=== PATIENT | female | born 1960 | race Caucasian/White ===

== ENCOUNTER 2024-06-03 15:42 | Outpatient (CLI) | payer MEDICARE, MEDICAID, SELFPAY ==
--- NOTE | 2024-06-03 10:15 | DI.RAD_ITS ---
Exam(s) XR KNEE RT 2V AP,LAT EXAM: XR KNEE RT 2V AP,LAT CLINICAL HISTORY: knee pain. TECHNIQUE: 2D digital imaging was performed. COMPARISON: CR ORTHO KNEE OPAL 4+VIEWS from 01/23/2019 FINDINGS: Two views. No evidence of fracture. There is a prominent joint effusion noted. There is opyw-is-[id number] narrowing of the medial compartment and marginal osteophytes off both sides of the medial femoral condyle. Lateral compartment exhibits normal height. Mild degenerative changes in the patellofemoral compartm ent. Bone density normal. No osseous lesions. IMPRESSION: Ctvx-[id number] narrowing of the medial compartment. DATA REPOSITORY: RADIATION DOSE DELIVERED:
--- NOTE | 2024-06-03 10:25 | DI.RAD_ITS ---
Exam(s) XR STANDING ALIGNMENT EXAM: XR STANDING ALIGNMENT CLINICAL HISTORY: knee pain. TECHNIQUE: 2D digital imaging was performed. COMPARISON: CR ORTHO KNEE OPAL 4+VIEWS from 01/23/2019 FINDINGS: 3 views There is [id number]-[id number] narrowing of the medial compartment of the right knee again noted with preserva tion of height of the lateral compartment. In the opposite-left knee there is advanced narrowing of the lateral compartment which has progressed from 2019 and associated with mild valgus deformity of the left knee. The medial compartment of the left knee continues to exhibit normal height. Hips appear unremarkable. Ankles unremarkable. No osseous lesions. IMPRESSION: Regression of degenerative changes in both knees as described above when compared to 2019. DATA REPOSITORY: RADIATION DOSE DELIVERED:
== END 2024-06-03 15:43 | disposition home or self-care (01) ==
LOC: DIORS 15:43
PROVIDERS: Visit Provider Physician Assistant
DX: M17.12 Unilateral primary osteoarthritis, left knee; M17.11 Unilateral primary osteoarthritis, right knee
CPT/HCPCS: 99203; 73560; 77073

== ENCOUNTER 2024-07-23 07:35 | Day surgery (SDC) | payer MEDICARE, MEDICAID, SELFPAY ==
[2024-07-23] VITALS (18 sets, daily range): BP systolic 75–145; BP diastolic 33–96; PULSE 62–157; RESP 9–21; TEMP 35.9–36.7; O2SAT 92–97; BMI 35.5
--- NOTE | 2024-07-23 07:18 | PDOC.DSDIS_ITS ---
Date of service: 07/23/24 Discharge Plan Disposition Patient Disposition: Home Condition: Good Discharge Details Reason For Visit: Right knee DJD Attending Provider: John Paul Lovett Primary Care Provider: Unknown,Unknown Home Meds and New Rx's Prescriptions: New celecoxib [Celebrex] 200 mg capsule 200 mg PO BID PRNQty: 60 0RF Rx Instructions: Take one tablet twice daily for pain and inflammation aspirin 81 mg tablet,delayed release (DR/EC) 81 mg PO BID 30 Days Qty: 60 0RF acetaminophen 500 mg tablet 1,000 mg PO Q8H PRN Qty: 90 0RF Rx Instructions: Take two tablets up to every 8 hours as needed for pain pantoprazole 40 mg tablet,delayed release (DR/EC) 40 mg PO DAILY Qty: 14 0RF dexamethasone 4 mg tablet 4 mg PO DAILY Qty: 2 0RF Rx Instructions: Take one tablet once daily for two days docusate sodium [Colace] 100 mg capsule 100 mg PO BID Qty: 30 0RF gabapentin 300 mg capsule 300 mg PO QHS Qty: 14 0RF Rx Instructions: Take one tablet at bedtime oxycodone 5 mg tablet 5 mg PO Q4H PRNQty: 18 0RF Rx Instructions: Take one tablet up to every 4 hours as needed for severe postoperative pain Continued atorvastatin 20 mg tablet 20 mg PO DAILY aripiprazole 10 mg tablet 10 mg PO DAILY bupropion HCl 300 mg tablet extended release 24 hr 300 mg PO QAM citalopram 40 mg tablet 40 mg PO DAILY trazodone 100 mg tablet 100 mg PO QHS PRN lamotrigine 100 mg tablet 100 mg PO BID clonazepam 1 mg tablet 1 mg PO BID Held adalimumab 40 mg/0.4 mL pen injector kit See Rx Instructions subcut .COMPLEX Hold Instructions: Resume on 08/13/24. Rx Instructions: inject one - 40 mg/0.4 mL pen every 2 weeks subcut Discharge Instructions Additional Instructions: Total Knee Discharge Instructions Activity: The most important activity is to walk and to work on gentle motion (both flexion and extension). You should try to take short walks a few times a day. It is important that when resting you work on keeping the knee straight. Avoid putting a pillow behind the knee as this will encourage flexion. Work on range of motion exercises as provided by Physical Therapy. - Start outpatient physical therapy within 2 weeks. - You should wear the STEPHANIE hose on both legs for 2 weeks. You may remove these at night. You may also use any compression sock in place of the STEPHANIE hose. - Utilize [employer] to review exercises, see videos on exercises and obtain basic information pertaining to your surgery and your recovery. Dressing: Remove the Jacky wrap by 2 days after your surgery and put on the STEPHANIE stocking given to you from the hospital. Keep the surgical dressing (underneath the JACKY wrap) in place for at least one week. After the first week it may be removed and replaced with light gauze and tape or nothing. The wound and dressing may get wet after 3 days but avoid soaking the dressing or otherwise it will need to be changed. Many people prefer covering the dressing with cling wrap (saran wrap) to minimize it from getting soaked. If it gets wet, just pat dry. If it starts to peel off then it will need to be changed. Medications: - You should take Tylenol and anti-inflammatory Celebrex as your primary pain control medications. If the Celebrex is too expensive or not covered, please call the office for another alternative (Advil/Ibuprofen or Naproxen/Aleve) - You have been prescribed a stronger pain medication Oxycodone for breakthrough pain, take as needed as prescribed. - You have also been prescribed a stomach acid reduction agent Pantoprozole to help reduce stomach acid and reflux. - You have been prescribed Gabapentin to take at night for restlessness and nerve pain. - You will be taking Aspirin 81mg twice a day for DVT prevention unless instructed otherwise. - You have also been prescribed Decadron to take to control post-operative nausea and pain. You will start this tomorrow. - If you have constipation you should take Colace (which has been prescribed) or Miralax (which is available [id number]). It takes most people 3-4 days to have a bowel movement. Follow-up: 2 weeks If you have any acute concerns or questions, please do not hesitate to contact the office at [phone]. You may contact Dr. Lovett with any questions after hours through the hospital at [phone] or on his cell phone at [phone]. Referrals: John Paul Lovett MD [ [facility] STAFF PHYSICIAN] - Equipment/Supplies: Walker Activity:: Elevate Remove Dressings/Wound Care:: Do Not Remove Shower/Bathe:: Cover Diet:: As Tolerated Discharge Orders Discharge Orders: Discharge Order (Routine); Ordered 07/23/24 Ordered By: Brissa Aguilar
[2024-07-23] MEDS: Acetaminophen 500 MG TAB 1000 MG PO (07:58)
[2024-07-23] MEDS: Gabapentin 300 MG CAP PO (07:58)
[2024-07-23] MEDS: Celecoxib 200 MG CAP 400 MG PO (07:58)
[2024-07-23] MEDS: Normal Saline 500 ML 30 ML IV (08:10)
--- NOTE | 2024-07-23 08:12 | ANES.PREOP_ITS ---
General Info Date of Service Date Performed: 07/23/24 Height: 5 ft Weight: 82.6 kg Body Mass Index (BMI): 35.5 Surgical Procedure: Operation Date: 07/23/24 09:25 Proposed Procedure Side Surgeon p Knee Total Arthroplasty w/OrthAlign Right John Paul Lovett MD Meds Allergies and Home Medications Allergies Allergy/AdvReac Type Severity Reaction Status Date / Time Penicillins Allergy Mild rash Verified 07/23/24 07:44 tree pollen Allergy Unknown Unknown Uncoded 07/23/24 07:44 Home Medication ?Medication ?Instructions ?Recorded adalimumab 40 mg/0.4 mL See Rx Instructions subcut .COMPLEX 04/23/24 subcutaneous pen kit aripiprazole 10 mg tablet 10 mg PO DAILY 04/23/24 atorvastatin 20 mg tablet 20 mg PO DAILY 04/23/24 bupropion HCl 300 mg 24 hr tablet, 300 mg PO QAM 04/23/24 extended release citalopram 40 mg tablet 40 mg PO DAILY 04/23/24 trazodone 100 mg tablet 100 mg PO QHS PRN 04/23/24 clonazepam 1 mg tablet 1 mg PO BID 06/03/24 lamotrigine 100 mg tablet 100 mg PO BID 06/03/24 acetaminophen 500 mg tablet 1,000 mg (2 x 500 mg) PO Q8H PRN 07/23/24 pain #90 tabs aspirin 81 mg tablet,delayed 81 mg PO BID 30 days #60 tabs 07/23/24 release celecoxib 200 mg capsule (Celebrex) 200 mg PO BID PRN #60 caps 07/23/24 dexamethasone 4 mg tablet 4 mg PO DAILY #2 tabs 07/23/24 docusate sodium 100 mg capsule 100 mg PO BID #30 caps 07/23/24 (Colace) gabapentin 300 mg capsule 300 mg PO QHS #14 caps 07/23/24 oxycodone 5 mg tablet 5 mg PO Q4H PRN #18 tabs 07/23/24 pantoprazole 40 mg tablet,delayed 40 mg PO DAILY #14 tabs 07/23/24 release Current Visit Medications: Current Medications Generic Name Dose Route Start Last Admin Trade Name Freq PRN Reason Stop Dose Admin Acetaminophen 1,000 mg 07/23/24 06:00 07/23/24 07:58 Acetaminophen 500 Mg Tab PO 07/23/24 23:59 1,000 mg PREOP CARTER Administration Celecoxib 400 mg 07/23/24 06:00 07/23/24 07:58 Celecoxib 200 Mg Cap PO 07/23/24 23:59 400 mg PREOP CARTER Administration Gabapentin 300 mg 07/23/24 06:00 07/23/24 07:58 Gabapentin 300 Mg Cap PO 07/23/24 23:59 300 mg PREOP CARTER Administration Hydromorphone HCl 0.5 mg 07/23/24 07:17 Hydromorphone 1 Mg/Ml Syr IVP 08/22/24 07:16 Q2H PRN PRN Cefazolin Sodium/Dextrose 2 gm in 50 mls @ 100 mls/hr 07/23/24 06:00 Ancef Duplex IVPB 07/23/24 23:59 PREOP CARTER Tranexamic Acid 1,000 mg/ 110 mls @ 660 mls/hr 07/23/24 06:00 Sodium Chloride IVPB 07/23/24 23:59 PREOP CARTER Sodium Chloride 500 mls @ 30 mls/hr 07/23/24 07:00 07/23/24 08:10 Saline 500ml Bag IV 08/22/24 06:59 30 mls/hr INFUSION CARTER Administration Cefazolin Sodium/Dextrose 1 gm in 50 mls @ 100 mls/hr 07/23/24 08:00 Ancef Duplex IVPB 07/24/24 00:29 Q8H CARTER IV Miscellaneous Supplies 1 each 07/23/24 06:00 Iv Access IV 07/23/24 23:59 DIRECTED CARTER Oxycodone HCl 0 mg 07/23/24 07:17 Oxycodone 5 Mg Tab PO 08/22/24 07:16 Q3H PRN PRN Pain Sodium Chloride 0 ml 07/23/24 06:00 Normal Saline Flush 10 Ml Syr IV 07/23/24 23:59 PRN PRN Sodium Chloride 0 ml 07/23/24 06:00 Normal Saline 10 Ml Vial IJ 07/23/24 23:59 DIRECTED PRN Sterile Water 0 ml 07/23/24 06:00 Water,Injection,Sterile 10 Ml Vial IJ 07/23/24 23:59 DIRECTED PRN PFSH Active Problems Active Problems: Problem Status Onset Code Ovarian cyst Acute N83.209 Osteoarthritis of left knee Acute M17.12 Osteoarthritis of right knee Chronic M17.11 Morbid obesity Acute E66.01 Midline cystocele Acute N81.11 Incomplete uterovaginal prolapse Acute N81.2 Hyperlipidemia Acute E78.5 Crohn's disease of large intestine Acute K50.10 Chronic colitis Acute K52.9 Medical History Medical History Depressive disorder Surgical History Surgical History History of colonoscopy History of esophagogastroduodenoscopy (EGD) History of tubal ligation History of cholecystectomy Tobacco Smoking/Tobacco Use Status: Former Tobacco Use Alcohol Alcohol Intake: never Substance Use Substance use: Daily Substance use type: marijuana Vital Signs and Lab Results Vital Signs Most Recent Vital Signs in EMR: Most Recent Vital Signs Temp Pulse Resp BP Pulse Ox 36.2 C L 64 16 145/96 H 96 07/23/24 07:40 07/23/24 07:40 07/23/24 07:40 07/23/24 07:40 07/23/24 07:40 Lab Results Blood Type / Crossmatch: 2 No Data to Display Complete Blood Count: 2 No Data to Display Complete Metabolic Panel: 2 No Data to Display Liver Function Panel: 2 No Data to Display Coagulation Panel: 2 No Data to Display Cardiac Panel: 2 No Data to Display Arterial Blood Gas: 2 No Data to Display Venous Blood Gas: 2 No Data to Display Pancreas Panel: 2 No Data to Display Thyroid Panel: 2 No Data to Display Infectious Disease: 2 No Data to Display Blood Cultures: 2 No Data to Display Toxicology Panel: 2 No Data to Display Anesthesia Assessment and Plan Anesthesia History Personal History: No History of Anesthesia Complications Family History: No Family History of Anesthesia Complications Exercise Tolerance Exercise Tolerance: Metabolic Equivalents<4 Pertinent Negatives Pertinent Negatives: No Symptoms of GERD, No Major Cardiovascular Symptoms or Complaints, No Major Pulmonary Symptoms or Complaints and No History of CVA/TIA Cardiac & Pulmonary Exam Cardiac Exam: Normal S1/S2 Heart Sounds Pulmonary Exam: Clear Bilateral Breath Sounds Implantable Cardiac Device Does patient have a Pacemaker or an ICD?: No Airway Exam Known Difficult Airway: No Mallampati Class: 2 Mouth Opening: Normal (> 3cm) Thyromental Distance: Greater than 3 cm Neck Range of Motion: Full ROM Neck Circumference: Normal Teeth Condition: Loose or Chipped and Removable Dentures/Plates Upper Tooth Numberin 1. Loose ASA Classification ASA Score: ASA 2 Emergency Case?: No NPO Status NPO Status: NPO Clears >2 hours, Solids >8 hours Anesthesia Plan Resuscitation Status: Full Code Anesthesia Technique: Spinal Anesthesia Airway Planned: Natural Airway Pain Management: Surgeon and patient request nerve block Monitors Used: Standard Monitors
[2024-07-23] MEDS: ceFAZolin 2 GM/50 ML BAG IVPB (08:42)
--- NOTE | 2024-07-23 08:50 | ROE_ITS ---
Operative Note Operative Note PRE-OP DIAGNOSIS: Right Knee Osteoarthritis POST-OP DIAGNOSIS: same PROCEDURE: Right Total Knee Replacement with Intraoperative Navigation SURGEON: John Paul Lovett GAS ENGINEER: Brissa Aguilar ANESTHESIA TYPE: Spinal Refer to Anesthesia Record ESTIMATED BLOOD LOSS: 50 PATHOLOGY: none sent TOURNIQUET TIME: 0 COMPLICATIONS: None Patient was transported to: PACU Patient's condition: stable Implants: 1. Depuy Attune Cementless Cruciate Retaining Femoral Component, Size 5 Narrow 2. Depuy Attune Cementless Fixed Bearing Tibial Component, Size 3 3. Depuy Attune 5x6mm CR/FB Poly 4. Depuy Attune Patellar Component, Size 32 Indications: I have seen Stephenie in clinic for symptoms of RIGHT knee arthritis, confirmed with radiographic findings. Stephenie has exhausted nonoperative methods and was having significant limitations in daily function and desired better function and less pain. I discussed the technical details of a knee replacement. I explained the risks of the procedure to include, but not limited to, bleeding, infection, pain, stiffness, fracture, damage to nerves and vessels, damage to muscles and tendons, loosening, need for repeat procedure, blood clot and cardiopulmonary demise. Despite these risks, she elected to proceed. Findings: There was significant signs of arthritis throughout the knee. Procedure Description: Stephenie was greeted in the preoperative holding area where the correct side was identified and marked. The consent was reviewed with the patient and signed. The history and physical was updated. All questions were answered. Preoperative mediacations were administered: Acetaminophen 1000mg, Celebrex 400mg, and Gabapentin 300mg. An adductor canal block was then administered by the anesthesia team in the DSU. She was taken back to the operating room. A spinal anesthestic was then administered. The patient was placed into the supine position on the operating room table. Posts were placed for positioning during the procedure. All bony prominences were well padded. Prophylactic antibiotics in the form of Cefazolin were administered. 1g of Tranxemic Acid was given intravenously within 30 minutes of incision. The right leg was then prepped with Chloraprep and draped in a standard fashion with impervious stockinette. A second prep with Chloraprep was performed prior to application of Iodine impregnated skin protection. A timeout to confirm correct identity, side and site, procedure, allergies, anesthesia, and medical concerns was performed. With the knee in some flexion, a midline incision was made overlying the knee. Full thickness skin flaps were raised once the extensor mechanism was encountered. These were raised medially and laterally. Any bleeding was controlled with electrocautery. Once the extensor mechanism was fully exposed, a medial parapatellar arthrotomy was performed in a flexed position. All bleeding from the arthrotomy and the geniculate arteries was coagulated. A medial subperiosteal peel was performed with electrocautery to the midcoronal plane. The fat pad was removed while keeping the patellar tendon protected. The anterior distal femur synovium was removed for later visualization. The ACL and PCL were resected and the anterior horn of the lateral meniscus was transected. The knee was then flexed with the patella everted. A single starting pin was then placed 1cm anterior to the PCL insertion and the notch in the direction of the femoral head. The OrthoAlign device was applied over the pin. It was oriented to be in line with the epicondylar axis and the trochlear groove. It was then pinned into place. The navigation computer was then turned on and calibrated. The distal femur cut was set at 0 degrees varus and 3.5 degrees flexion. The distal femur cutting guide then was positioned for a 9mm cut. The distal femur was cut with an oscillating saw while protecting the soft tissues. The tibia was then addressed. The OrthoAlign device was placed over the tibial tubercle and medial tibia and secured into position. Once again, OrthoAlign was calibrated and then set for a 1.5 degree varus cut and 5.5 degrees of posterior slope. With this locked into position, the cut thickness stylus was used to assess cut thickness. The medial side, most involved side, was set for a 6mm cut. This was then held in position and pinned into place with 2 additional pins and a cross pin for stability. The medial and lateral collateral ligaments were protected and the cut was performed. With this completed, it was assessed and noted to be of appropriate dimensions. The guide and OrthoAlign was removed. A spacer block was inserted and the knee was brought into extension to ensure enough space was present. . The Orthoalign gap balancing device was then placed in extension. This was used to ensure that the ligaments were properly balanced with up to 2 to 3 mm laxity laterally compared medially. The extension gap was measured as 20mm. The knee was then brought into 90 degrees of flexion and the ligament forensic document examiner was once again placed. Under the same amount of force the flexion gap was measured. The Attune specific jig was placed and the flexion gap was made to match the extension gap. The femur was then sized as a size 5 narrow. The 4-in-1 cutting guide was the placed. An arsenio wing was used to confirm appropriate position of the anterior cut to avoid notching. This cutting guide was ensured to be flush on the cut surface and then pinned into place with headed pins. While protecting the soft tissues, quad tendon, and collateral ligaments, the anterior and posterior cuts were performed with a saw. The central two pins were removed and the posterior and anterior chamfers were cut next. The notch-cutting guide was placed. This was pinned to lateralize the femoral component as much as possible while keeping it flush on the cut surface. This was then pinned into position. A saw was used to make the notch cut. A rasp smoothed the cut surfaces. The medial and lateral menisci were removed. A trial femoral component was then inserted, impacted down to the cut surfaces, and the lug holes were drilled. A provisional trial tibial component was placed and the knee was brought through range of motion. There was noted to be excellent extension and flexion. There was no significant instability. The patella was tracking without thumbs. A size 6mm polyethylene component provided the best range of motion and stability with less than 2mm gapping with medial and lateral stress and full extension without significant hyperextension. The tibial cut surface was fully exposed. The tibia was then sized as a 3. The tibia had been previously marked during trialing to correspond to the center of the tibial component to help with rotation. The trial was aligned to this santos, approximately rotated to the medial 1/3rd of the tibial tubercle. The trial was pinned into place. The tibia was prepared with a reamer and a keel punch and lug holes. The knee was then brought into extension and the patella was measured as 21mm. Using the patellar clamp and cut guide, this was resected to a flat surface with at least 13mm of thickness remaining. The size 32 patella fit the best. This was oriented and then clamped into position. The lugs were drilled. The trial components were removed. The final components were opened on the back table. The periosteal and capsular tissues, especially posteriorly, around the knee were then systematically injected with a periarticular cocktail consisting of 246mg of Ropivacaine, 0.5mg of Epinephrine, 0.08mg of Clonidine, and 30mg of Ketorolac, diluted to 100cc. On the back table, with the implants opened, the cement was mixed. One batch of high viscosity cement was prepared with vacuum assistance. After the cement was ready a small amount was placed on the cut surface of the patella and the patellar button was clamped into position and held. While the cement was harde leona, the cementless knee components were placed. Starting with the tibial component, the tibia was subluxed anteriorly and the lug holes of the component were lined up. The tibia was then impacted with an impactor and mallet until the tibial component was in contact with the tibia. Then, the femoral component was inserted. The lug holes were aligned and the component was impacted into position. The final polyethylene component was inserted. The knee was irrigated with Surgiphor Betadine solution. This was allowed to sit in the knee for 3 minutes and then it was thoroughly irrigated out with saline. After the cement had finally cured, approximately 15min, the clamp was removed from the patella and the knee was taken through range of motion. The patella was tracking with a no-thumbs technique. The capsule was then reapproximated with a No. 1 Vicryl at multiple locations. The capsule was finally closed with a No. 2 Stratafix, barbed suture. Deep tissues were then reapproximated with 0 Vicryl and 2-0 Vicryl. The skin was closed with a running 3-0 Monocryl in a subcuticular fashion. This was reinforced with skin glue. A Mepilex silver dressing was applied along with a [id number] IGOR wrap. A CryoCuff was applied. Stephenie was transferred to the hospital bed without difficulty an suffering no apparent complication. Stephenie has a good prognosis. Physical therapy will start today and without restrictions, weight-bearing as tolerated. Aspirin 81mg BID will be used for DVT prophylaxis. Date of Procedure: 07/23/24
--- NOTE | 2024-07-23 09:09 | W.ANESNERVE ---
Nerve Block Single Injection Procedure Date and Time Date Performed: 07/23/24 Procedure Start: 08:34 Location Where Procedure Performed Procedure Location: Day Surgery Unit Reason Performed: Postoperative Analgesia Requesting Provider: John Paul Lovett Timeout Performed Timeout Performed: Yes Monitoring Used ECG, Blood Pressure, SpO2 and See EMR for corresponding vital signs Sterility Sterility: Hand Hygiene, Surgical Cap, Surgical Mask, Sterile Gloves, Sterile Drape/Sheet and Chlorhexidine Sedation Given During Procedure Sedation Given (Indicate Dose Given): No Sedation given Patient Mental Status Patient Mental Status: Awake Nerve Block 1st Nerve Block: Laterality: Right Block Type: Adductor Canal Ultrasound Image Saved?: Yes Needle / Catheter Used: 120mm SonoPlex II Local Anesthetic Bolus (Indicate Dose Given): Lidocaine used for local infiltration of skin, Injected in 3-5ml increments after negative blood aspiration and Bupivacaine 0.25% Dose:: 15 ml Additives (Indicate Dose Given): None Ultrasound: Sterile probe cover and gel used Nerve Stimulator: Not Used Paresthesia: None Procedure Tolerated: No Complications and Patient tolerated well Procedure Outcome: Successful Performed By: Dimple Aponte
--- NOTE | 2024-07-23 11:24 | W.ANESPOSTOP ---
Postoperative Evaluation Date, Time and Location Date Performed: 07/23/24 Time Performed: 11:19 Patient Location: Day Surgery Unit Vital Signs Most Recent Imported Vital Signs: Most Recent Vital Signs Temp Pulse Resp BP Pulse Ox 35.9 C L 62 18 114/67 95 07/23/24 11:02 07/23/24 11:02 07/23/24 11:02 07/23/24 11:02 07/23/24 11:02 Pain Score Most Recent Pain Score: Most Recent Pain Score Pain Level 0 07/23/24 11:02 Assessment Mental Status: Awake (Alert & Oriented to Patient Baseline) Airway and Respiratory Function: Patent airway with normal (patient baseline) respiratory exam Cardiovascular Function: Hemodynamically Stable Hydration Status: Adequately Hydrated Nausea & Vomiting: No Nausea or Vomiting Pain: Pain is tolerable per patient Peripheral Nerve Block: Regional nerve block not resolved at time of post operative discharge Postoperative Comments:: Spinal wearing off appropriately. Patient with tentative postop so long as voids and no major status changes can go home.
[2024-07-23] MEDS: oxyCODONE 5 MG TAB PO (11:48)
--- NOTE | 2024-07-23 12:05 | IN_ITS ---
PT Notes Visit Reasons: Right knee DJD Physical Therapy Day Surgery Initial Evaluation Date: 07/23/2024 Referring Doctor: ANA MARIA Talamantes PT Orders: PT CONSULT: S/p Ortho surgery Precautions: WBAT on the right LE with AD. Patient Profile/Admitting Diagnosis: Stephenie is a 64-year-old female with degenerative joint disease of the right knee and is status post right total knee arthroplasty on postoperative day 0. PMHX: Medical History (Updated 07/08/24 @ 13:47 by Brissa Aguilar) Depressive disorder Surgical History (Updated 04/23/24 @ 10:37 by Frieda Benites RN) History of colonoscopy History of esophagogastroduodenoscopy (EGD) History of tubal ligation History of cholecystectomy Social History/Home Situation: Independent with all aspects of ADLs prior to surgery although was having increased difficulty with mobility ADL performance due to arthritis. 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 Equipment Owned/DME: None Subjective: Complained of pain at 7?8/10 in the front of her right knee at rest and with movement. Denied headache, chest pain, and lightheadedness throughout session. Objective: General Observation: Patient resting in bed. IGOR wraps to right LE. Cryo/Cuff to right knee. Mental Status: ANO x 4 Pain: 7-8/10 at rest and with movement ROM: Right Lower Extremity: Hip flexion WFL. Hip abduction WFL. Knee flexion 10 degrees to 100 degrees. Knee extension -10 degrees ankle dorsiflexion WFL. Ankle plantarflexion WFL. Left Lower Extremity: Hip flexion WFL. Hip abduction WFL. Knee flexion WFL. Ankle dorsiflexion WFL. Ankle plantarflexion WFL. Strength: Right Lower Extremity: Hip flexors 5/5. Hip abductors 5/5. Knee flexors 3-/5. Knee extensors 3-/5. Ankle dorsiflexors 5/5. Ankle plantarflexors 5/5. Left Lower Extremity:Hip flexors 5/5. Hip abductors 5/5. Knee flexors 5/5. Knee extensors 5/5. Ankle dorsiflexors 5/5. Ankle plantarflexors 5/5. Sensation: Intact tested pain and light pressure in bilateral lower extremities Bed Mobility/Transfers: Minimal cueing provided for use of B hands as needed for support, movement sequence, AD management, and posture to reduce fall risk and minimize pain report Supine to sit stand by assist Sit to stand contact-guard assist with FWW Stand to sit stand by assist Bed to chair stand by assist Gait: Facilitated safe and correct performance of level surface ambulation covering a distance of 150 feet using front wheeled walker with reciprocal swing through heel-toe gait pattern requiring only contact-guard assist and minimal verbal cueing for safe gait pattern, AD management, proper weight distribution, and posture to minimize pain report and reduce fall risk. Balance: Static Sitting: Normal Dynamic Sitting: Normal Static Standing: Fair Dynamic Standing: Fair Special Tests: Mobility Limitations Standardized Measure [facility] AM-PAC 6 clicks Basic Mobility Inpatient Short Form: Raw Score: 21 CMS Score: 29% deficit Informed Consent/Education: Patient instructed in purpose of PT consult. Packet containing TKA exercise protocol has been given to patient. Education and training on initial set of exercises that can be done at home have been completed with patient. Trained patient with correct performance of exercises below to maximize motor control, joint flexibility, soft tissue extensibility of the R knee musculature: Access Code: [email or web address] URL: [email or web address] Date: 07/23/2023 Prepared by: Letty Hoover Exercises - Supine Quad Set - 1 x daily - 7 x weekly - 1 sets - 10 reps - 5 hold - Supine Heel Slide - 1 x daily - 7 x weekly - 1 sets - 10 reps - 5 hold - Supine Ankle Pumps - 1 x daily - 7 x weekly - 1 sets - 10 reps - 5 hold - Small Range Straight Leg Raise - 1 x daily - 7 x weekly - 1 sets - 10 reps - 5 hold - Seated March - 1 x daily - 7 x weekly - 1 sets - 10 reps - 5 hold Assessment: Patient requires the use of a front wheeled walker for mobility ADL performance to maximize independence and reduce fall risk. Patient presents with clinical signs and symptoms consistent with current/admitting diagnoses that have resulted to mobility limitations, gait instability, generalized weakness, and impairment of motor control as demonstrated by the following impairment level findings: 1. Decreased strength to R knee major muscle groups 2. Impaired standing balance 3. Limitation of joint range of motion in R knee Impairments are contributing to the following functional limitations: 1. Inability to safely ambulate without assistive device 2. Increase completion time for mobility ADL performance 3. Increased fall risk Patient is assessed as a 51435 moderate complexity based on the following: History: 64-year-old female with impairment level findings, functional limitations, and past medical history as indicated above Examination: Demonstrable impairment in strength, balance, and mobility level with underlying impairments and functional limitations as documented above Presentation: Evolving Decision Makin moderate complexity Goals: N/A. PT evaluation and 1-2 treatment sessions only for functional mobility training using recommended AD and for HEP instruction. Plan of Care/Treatment Plan: N/A. PT evaluation and 1-2 treatment session only for functional mobility training using recommended AD and for HEP instruction. DISCHARGE RECOMMENDATIONS: Home when medically cleared by orthopedic surgeon. Recommend outpatient PT services in order to optimize functional mobility outcomes and facilitate return to independent community ambulation without an assistive device. TREATMENT CODE/TIME: 42003 x 20 minutes for 1 unit, 90650 x 15 minutes for 1 unit (12:05?12:40). Thank you for the opportunity to participate in the care of this patient. Please sign an return this page within 30 days if you agree with the above POC. Thank you! Physician Signature Date [facility] Thank you for the opportunity to participate in the care of this patient. Letty Hoover PT, DPT, CLT [facility] [place], [place]
== END 2024-07-23 13:04 | disposition home or self-care (01) ==
LOC: SUR 07:36
PROVIDERS: Visit Provider Student in an Organized Health Care Education/Training Program
PROC: (CPT 27447; principal; 2024-07-23 09:15)
DX: M17.11 Unilateral primary osteoarthritis, right knee (principal); G89.29 Other chronic pain; M25.561 Pain in right knee; E66.01 Morbid (severe) obesity due to excess calories; E78.5 Hyperlipidemia, unspecified; K50.10 Crohn's disease of large intestine without complications
CPT/HCPCS: 20985; 27447; 64447; 97110; 97162; C1776; J0665; J0690; J1100; J2003; J2250; J2401; J2405; J2704

== ENCOUNTER 2024-09-19 15:25 | Outpatient (CLI) | payer MEDICARE, MEDICAID, SELFPAY ==
--- NOTE | 2024-09-19 10:00 | DI.RAD_ITS ---
Exam(s) XR KNEE RT 2V AP,LAT XR STANDING ALIGNMENT EXAM: XR STANDING ALIGNMENT and XR knee RT 2 V CLINICAL HISTORY: F/U RIGHT TKR. TECHNIQUE: 2D digital imaging was performed. Six images were obtained. COMPARISON: CR XR STANDING ALIGNMENT from 06/03/2024 CR XR KNEE RT 2V AP,LAT from 06/03/2024 FINDINGS: BONES: The hips are well maintained. Since the prior examination the patient has undergone a right t otal knee arthroplasty. The orthopedic hardware is in good position. Old well corticated osseous de nsities are seen in the soft tissues anterior to the patella. In the left knee, there are marked deg enerative changes seen in the lateral femoral tibial joint characterized by joint space narrowing and osteophytes.. The ankles are well maintained.There is no significant leg length discrepancy. SOFT TISSUE: Normal. IMPRESSION: 1. Right total knee arthroplasty. 2. Marked degenerative changes in the lateral femoral tibial joint of the left knee. DATA REPOSITORY: RADIATION DOSE DELIVERED:
== END 2024-09-19 15:26 | disposition home or self-care (01) ==
LOC: DIORS 15:26
PROVIDERS: Visit Provider Physician Assistant
DX: Z96.651 Presence of right artificial knee joint (principal); Z47.1 Aftercare following joint replacement surgery
CPT/HCPCS: 99024; 73560; 77073

== ENCOUNTER → 2024-11-04 10:01 | Outpatient (BNVA) | payer MEDICARE, MEDICAID, SELFPAY | PROVIDERS: Visit Provider Student in an Organized Health Care Education/Training Program | DX: Z47.1 Aftercare following joint replacement surgery (principal); Z96.651 Presence of right artificial knee joint | CPT/HCPCS: 99213 ==